=== PATIENT | male | born 1935 | race Caucasian/White ===

== ENCOUNTER 2018-02-11 17:35 | Inpatient (IN) | payer MEDICARE, OTHER ==
[~2018-02-11] VITALS: Ht 167.6 cm; Wt 66.5 kg
--- NOTE | ~2018-02-11 | HP ---
PATIENT: DANII JEROME MEDICAL RECORD: [id number] ACCOUNT: [id number] LOCATION:D.[id number] : 35 ADMISSION DATE: 02/12/18 HISTORY AND PHYSICAL EXAMINATION DIAGNOSES: 1. Syncope. 2. Abnormal ECG. 3. Dysrhythmia, premature ventricular contractions. 4. Chronic obstructive pulmonary disease. 5. Hyperlipidemia. 6. Gastroesophageal reflux disease. HISTORY OF PRESENT ILLNESS: Mr. Jerome presented yesterday to the Emergency Room after having an episode of syncope. He was relatively dehydrated after playing golf and doing yard work; however, he was in the garage, was disoriented for a time frame, then had дмитрий syncope witnessed by his . He has frequent PVCs on his EKG. His EKG is as well abnormal with a left bundle-branch block. He has not had a history of ischemic heart disease. He had a stress test in 2014 and that was overall normal. He has had syncope in the past, and he has frequent episodes of palpitations and flutter. PHYSICAL EXAMINATION: GENERAL APPEARANCE: Well-nourished, well-developed, appears stated age. Level of distress, comfortable. PSYCHIATRIC: Mental status, alert, normal affect. Orientation, oriented to time, place and person. EYES: Lids and conjunctiva, noninjected. No discharge, no pallor. ENT: Lips, teeth, gums, normal dentition. Oropharynx, no cyanosis, no pallor. NECK: Carotid arteries, bilateral normal upstroke, no bruits, no thrills. JUGULAR VEINS: No jugular venous pressure or distention. CERVICAL LYMPH NODES: Nontender, nonenlarged. THYROID: Not enlarged. Nontender. No nodules. LUNGS: Respiratory effort, unlabored. CHEST: Normal curvature. No thoracic deformity. No chest wall tenderness. Percussion, resonant. Auscultation, clear. No wheezes, no rales, no rhonchi. CARDIOVASCULAR: Precordial exam, nondisplaced. No heaves or pericardial thrills. Rate and rhythm, regular. Heart sounds, normal S1, normal S2. No S3, no gallop, no rub. Systolic murmur, not heard. Diastolic murmur, not heard. EXTREMITIES: No cyanosis, no edema. Peripheral pulses, full and equal in all extremities, except as noted. No bruits appreciated. ABDOMEN: Soft, nondistended. Normal aorta. No bruit. Nontender. No masses. Liver, nontender, no hepatomegaly. Spleen, nontender, no splenomegaly. MUSCULOSKELETAL: No joint tenderness. No joint swelling. No erythema. NEUROLOGICAL: Normal gait, normal strength, normal tone. SKIN: Warm and dry. OVERALL IMPRESSION: Syncope with abnormal ECG and dysrhythmia with PVCs. Most likely had a complex dysrhythmia causing the episode of syncope. We will observe on telemetry. With his abnormal ECG, this is very well ischemic based. We will plan for cardiac catheterization in the near future. TRANSINT:[id number] Voice Confirmation ID: [id number] DOCUMENT ID: [id number] HISTORY AND PHYSICAL [id number] DANII JEROME, NU SCHMITZ at 1207 CC: [id number] DICTATION DATE: 02/12/18 0939 GRADUATE TEACHING ASSISTANT: 02/12/18 1051 ADM IN [id number] [place] [address]
--- NOTE | ~2018-02-11 | DS ---
PATIENT:DANII PRESTON :35 MEDICAL RECORD: [id number] DISCHARGE SUMMARY ADMISSION DATE: 02/12/18 DISCHARGE DATE: 02/13/18 DISCHARGE DIAGNOSES: 1. Syncope. 2. Premature ventricular contractions. HOSPITAL COURSE: This is a gentleman who presents with syncope, ruled out for an HI. He was found to have frequent PVCs, but no complex dysrhythmias. He was started on Toprol 25 mg every day. He will follow up with [facility] in 2 weeks. TRANSINT:[id number] Voice Confirmation ID: [id number] DOCUMENT ID: [id number] NU CARD MD at 2002 CC: [id number] DICTATION DATE: 02/13/18 1550 SEED CORE OPERATOR: 02/13/18 1615 DIS IN 02/13/18 [facility] [address] [place] [address]
[2018-02-11 18:00] VITALS: BP 137/75
[2018-02-11 18:07] LABS: BASOPHILS 0.3 % (0-2); EOSINOPHILS 0.7 % (0-7); HEMATOCRIT 42.5 % (42.0-54.0); HEMOGLOBIN 14.4 g/dL (13.5-17.5); IMMATURE GRANULOCYTES 0.4 % (0-5); LYMPHOCYTES 10.5 % (15-50); MCH 31.4 pg (26.0-34.0); MCHC 33.9 g/dL (31.0-37.0); MCV 92.8 fL (80.0-100.0); MEAN PLATELET VOLUME 10.6 fL (7.4-10.4); MONOCYTES 11.8 % (2-11); NEUTROPHILS 76.3 % (40-80); PLATELET COUNT 157 10x3/uL (130-400); RBC 4.58 10x6/uL (4.20-6.10); RDW 13.5 % (11.5-14.5); WBC 7.6 10x3/uL (4.8-10.8)
[2018-02-11 18:15] VITALS: BP 104/80
[2018-02-11 18:27] LABS: ALBUMIN 3.3 g/dL (3.4-5.0); ALKALINE PHOSPHATASE 73 U/L (46-116); ALT (SGPT) 20 U/L (10-68); BILIRUBIN - TOTAL 1.18 mg/dL (0.2-1.3); CALC OSMOLALITY 277 mosm/kg (275-300); CALCIUM 8.5 mg/dL (8.5-10.1); CARBON DIOXIDE 27.3 mmol/L (21.0-32.0); CHLORIDE - SERUM 106 mmol/L (98-107); CREATININE - SERUM 1.1 mg/dL (0.6-1.3); GLUCOSE 95 mg/dL (74-106); POTASSIUM - SERUM 3.7 mmol/L (3.5-5.1); PROTEIN - SERUM 6.6 g/dL (6.4-8.2); SODIUM 140 mmol/L (136-145); UREA NITROGEN 10 mg/dL (7-18); eGFR NON AFRICAN AMERICAN 68 mL/min (90-120)
[2018-02-11 18:31] LABS: TROPONIN-I < 0.017 ng/mL (0.000-0.060)
[2018-02-11 19:15] VITALS: BP 139/62
[2018-02-11 19:24] LABS: APPEARANCE CLEAR (CLEAR); BILIRUBIN NEGATIVE (NEGATIVE); COLOR YELLOW (YELLOW); GLUCOSE NEGATIVE (NEGATIVE); KETONE NEGATIVE (NEGATIVE); NITRITE NEGATIVE (NEGATIVE); PROTEIN NEGATIVE (NEGATIVE); UROBILINOGEN NORMAL (NORMAL)
[2018-02-11] MEDS ORDERED: LIPITOR20 MG PO (19:39)
[2018-02-11] MEDS ORDERED: XANAX0.5 MG PO (19:40)
[2018-02-11] MEDS ORDERED: FLUTICASONE PRO16 GM NASAL (19:40)
[2018-02-11] MEDS ORDERED: PROAIR HFA8.5 GM INH (19:41)
[2018-02-11] MEDS ORDERED: HYDROCODON-ACE1 EAC7 PO (19:41)
[2018-02-11] MEDS ORDERED: NEXIUM20 MG PO (19:41)
[2018-02-11] MEDS ORDERED: FEXOFENADINE H180 MG PO (19:42)
[2018-02-11 20:00] VITALS: BP 137/75
[2018-02-11 21:00] VITALS: BP 133/64
[2018-02-11 22:00] VITALS: BP 117/60
[2018-02-11 22:37] LABS: CKMB 3.5 U/L (0.0-3.6); CREATINE KINASE 188 UL (21-232)
[2018-02-11 22:38] LABS: TROPONIN-I < 0.017 ng/mL (0.000-0.060)
[2018-02-12 01:04] VITALS: BP 140/69; BMI 23.7
[2018-02-12 03:11] VITALS: BP 142/62
[2018-02-12 04:30] LABS: BASOPHILS 0.4 % (0-2); EOSINOPHILS 0.9 % (0-7); HEMATOCRIT 41.7 % (42.0-54.0); IMMATURE GRANULOCYTES 0.1 % (0-5); MCHC 33.6 g/dL (31.0-37.0); MCV 92.3 fL (80.0-100.0); MEAN PLATELET VOLUME 10.9 fL (7.4-10.4); MONOCYTES 13.9 % (2-11); NEUTROPHILS 63.7 % (40-80); PLATELET COUNT 176 10x3/uL (130-400); RBC 4.52 10x6/uL (4.20-6.10); RDW 13.6 % (11.5-14.5); WBC 7.1 10x3/uL (4.8-10.8)
[2018-02-12 05:00] LABS: ALBUMIN 2.8 g/dL (3.4-5.0); ALKALINE PHOSPHATASE 65 U/L (46-116); ALT (SGPT) 15 U/L (10-68); BILIRUBIN - TOTAL 1.18 mg/dL (0.2-1.3); CALC OSMOLALITY 281 mosm/kg (275-300); CARBON DIOXIDE 28.3 mmol/L (21.0-32.0); CHLORIDE - SERUM 109 mmol/L (98-107); CKMB 4.4 U/L (0.0-3.6); CREATINE KINASE 228 UL (21-232); CREATININE - SERUM 0.9 mg/dL (0.6-1.3); GLUCOSE 105 mg/dL (74-106); POTASSIUM - SERUM 3.7 mmol/L (3.5-5.1); PROTEIN - SERUM 5.9 g/dL (6.4-8.2); SODIUM 142 mmol/L (136-145); UREA NITROGEN 9 mg/dL (7-18); eGFR NON AFRICAN AMERICAN 86 mL/min (90-120)
[2018-02-12 05:14] LABS: TROPONIN-I < 0.017 ng/mL (0.000-0.060)
[2018-02-12 07:59] VITALS: BP 128/61
[2018-02-12 10:07] VITALS: Ht 167.6 cm; Wt 66.5 kg
[2018-02-12 10:23] LABS: CKMB 3.1 U/L (0.0-3.6); CREATINE KINASE 214 UL (21-232); TROPONIN-I < 0.017 ng/mL (0.000-0.060)
[2018-02-12 12:22] VITALS: BP 121/57
[2018-02-12 16:23] VITALS: BP 122/47
[2018-02-12 20:49] VITALS: BP 104/60
[2018-02-13 00:07] VITALS: BP 136/58
[2018-02-13 04:39] VITALS: BP 136/58
[2018-02-13 08:07] VITALS: BP 146/78
[2018-02-13 12:29] VITALS: BP 139/57
[2018-02-13 15:47] VITALS: BP 119/64
[2018-02-13] MEDS ORDERED: TOPROL XL25 MG PO (15:50)
== END 2018-02-13 16:15 | disposition home or self-care (01) | DRG 312 ==
LOC: D.ER 17:35 → D.EDHOLD 21:40 → OBSVTIME 21:40 → D.M2 22:11 → D.MS 23:28
PROVIDERS: Family Medicine
PROC: 0HQ0XZZ Repair Scalp Skin, External Approach (ICD-10-PCS; principal; 2018-02-11)
DX: R55 Syncope and collapse (principal); I49.3 Ventricular premature depolarization; S01.01XA Laceration without foreign body of scalp, initial encounter; W18.30XA Fall on same level, unspecified, initial encounter; Y92.015 Private garage of single-family (private) house as the place of occurrence of the external cause; J44.9 Chronic obstructive pulmonary disease, unspecified; E78.5 Hyperlipidemia, unspecified; K21.9 Gastro-esophageal reflux disease without esophagitis; E86.0 Dehydration; I44.7 Left bundle-branch block, unspecified; R94.31 Abnormal electrocardiogram [ECG] [EKG]

== ENCOUNTER 2018-11-18 10:42 | Observation (INO) | payer MEDICARE, OTHER ==
[~2018-11-18] VITALS: Ht 167.6 cm; Wt 68.0 kg
--- NOTE | ~2018-11-18 | HEMODYNAMI ---
PATIENT:DANII PRESTON MEDICAL RECORD: [id number] : 35 LOCATION:[facility] [address] ADMISSION DATE: 11/18/18 Generatedon:11/20/201816:43 Patient name: DANII PRESTON Patient #: [id number] SSN: : 1 10/02/1934 Date of study: 11/20/2018 Page: Of Hemodynamic Procedure Report Patient Data Patient Demographics Procedure consent was obtained First Name: DANII Gender: Male Last Name: KARY : 1935 Patient #: [id number] Age: 83 year(s) Race: Unknown Additional ID: [id number] Contact details [address]: [address] [place] [address] State: [place] City: [place] Zip code: [address] Past Medical History Allergies Allergen Reaction Date Comments Reported Other allergy 11/20/2018 IODINATED CONTRAST- ORAL AND IV DYE, ASA Admission Admission Data Admission Date: 11/18/2018 Admission Time: 12:27 Room #: 2129 Height (in.): 65.75 BSA: 1.79 (m2) Height (cm.): 167 BMI: 25.1 (kg/m2) Weight (lbs.): 154.32 Weight (kg.): 70 Lab Results Lab Result Date: 11/20/2018 Lab Result Time: 0:00 Biochemistry Name Units Result Min Max BUN mg/dl 15 --(--*-)-- 7 18 Creatinine mg/dl 0.8 --(-*--)-- 0.6 1.3 CBC Name Units Result Min Max Hematocrit % 41.1 -*(----)-- 42 54 Hemoglobin g/dl 14.1 --(*---)-- 13.5 17.5 Procedure Procedure Types Cath Procedure Diagnostic Procedure [facility] w/Coronaries Sedation Charges Moderate Sedation up to 30 minutes PCI Procedure Coronary Stent Coronary Stent Initial Procedure Description Procedure Date Procedure Date: 11/20/2018 Procedure Start Time: 16:14 Procedure End Time: 16:40 Procedure Staff Name Function Serge Martini MD Performing Physician Sobia Paul RT Monitor Christina Calrk RN Nurse Tammy Evangelista RT Monitor Minerva Cruz RT Scrub Procedure Data Cath Procedure Fluoroscopy Diagnostic fluoroscopy Total fluoroscopy Time: 6.5 time: 6.5 min min Diagnostic fluoroscopy Total fluoroscopy dose: 785 dose: 785 mGy mGy Contrast Material Contrast Material Type Amount (ml) Isovue 300 122 Entry Location Entry Primary Successful Side Size Upsize Upsize Entry Closure [place] ccessful Closure Location (Fr) 1 (Fr) 2 (Fr) Remarks Device Remarks Radial Right 6 Fr Manual tr artery Short Compression Estimated blood loss: 10 ml Diagnostic catheters Device Type Used For End Catheter Placement DIAGNOSTIC [place] 110cm 5 Procedure Fr catheter ([id number]) Procedure Complications No complications Procedure Medications Medication Administration Route Dosage 0.9% NaCl I.V. 100 ml/hr Oxygen etCO2 Nasal cannula 2 l/min Lidocaine 2% added to field 20 Heparin Flush Bag added to field 2 bags (1000units/500ml NS) Radial Cocktail added to field 1 syringe (Verapomil 2mg/Nitro 400mcg/Heparin 1500units) Versed I.V. 2 mg Fentanyl I.V. 50 mcg Fentanyl I.V. 50 mcg Heparin Bolus I.V. 4000 units Integrilin (Bolus I.V. 6.2 ml 2mg/ml) Nitroglycerin IC/IA I.C. 200 mcg Plavix P.O. 600 mg Hemodynamics Rest BSA: 1.79 (m2) O2 Consumption: Estimated: 217.02 (ml/min) O2 Consumption indexed : Estimated:121.24 (ml/min/m) Heart Rate: 90 (bpm) Pressure Samples Time Site Value (mmHg) Purpose Heart Use Rate(bpm) 16:16 LV 118/9,9 Snapshot 87 16:16 AO 96/54(78) Pullback 84 16:16 LV 75/33,-16 Pullback 84 Gradients Valve Time Site 1 Site 2 Mean SEP/DFP Peak To Heart Use (mmHg) (sec/min) Peak Rate (mmHg) (bpm) Aortic 16:16 LV AO 0 84 75/33,-16 96/54(78) Calculations Valve P-P Mean Valve Index Valve Source Name Gradient Area Flow (cm2) Aortic 0 0 Snapshots Pre Cath Intra NCS Post Cath Vital Signs Time Heart Resp SPO2 etCO2 NIBP (mmHg) Rhythm Pain Sedation Rate (ipm) (%) (mmHg) Status Level (bpm) 16:03:02 84 12 97 14.9 158/89(135) NSR 0 (11) 10(A) , No pain 16:08:05 88 18 100 29.2 147/86(118) NSR 0 (11) 10(A) , No pain 16:12:25 77 13 99 26.2 133/76(118) NSR 0 (11) 9(A) , No pain 16:16:43 85 14 98 26.2 115/63(86) NSR 0 (11) 9(A) , No pain 16:20:55 78 10 94 11.9 116/63(88) NSR 0 (11) 9(A) , No pain 16:25:11 89 11 97 26.2 124/49(97) NSR 0 (11) 9(A) , No pain 16:30:10 83 15 98 26.2 122/66(96) NSR 0 (11) 9(A) , No pain 16:34:24 80 13 95 28.4 116/63(87) NSR 0 (11) 10(A) , No pain 16:38:32 91 18 97 29.2 125/64(107) NSR 0 (11) 10(A) , No pain Medications Time Medication Route Dose Verified Delivered Reason Not es Effectiveness by by 16:02:04 0.9% NaCl I.V. 100 Serge Vasquez used for ml/hr Lianet Eduardo procedure MD AWAD 16:02:14 Oxygen etCO2 2 l/min Serge Vasquez used for Nasal Lianet Eduardo procedure cannula MD AWAD 16:02:20 Lidocaine 2% added 20ml Serge Valentine [facility] 16:02:24 Heparin Flush added 2 bags Serge Valentine [facility] for [facility] (1000units/500ml field MD SCHMITZ NS) 16:02:29 Radial Cocktail added 1 Serge Valentine used for (Verapomil to syringe Lianet Lianet procedure 2mg/Nitro field MD SCHMITZ 400mcg/Heparin 1500units) 16:09:15 Versed I.V. 2 mg Serge Kca for sedation [facility] Ferdinand Clark MD, RN 16:09:26 Fentanyl I.V. 50 mcg Serge Vasquez for sedation [facility] Ferdinand Clark MD, RN 16:14:34 Fentanyl I.V. 50 mcg Serge Vasquez for sedation [facility] Ferdinand Clark MD, RN 16:20:24 Heparin Bolus I.V. 4000 Serge Vasquez for kelsy ified units [place] Eduardo anticoagulation with dr MD AWAD kyung 16:22:30 Integrilin I.V. 6.2 ml Serge Vasquez for was ganga (Bolus 2mg/ml) [place] Eduardo anticoagulation 3.8 ml MD AWAD of vial 16:30:38 Nitroglycerin I.C. 200 mcg Serge Valentine for IC/IA [place] [facility] Ferdinand segura MD, MD 16:40:38 Plavix P.O. 600 mg Serge Vasquez for LianetFerdinand Clark antiplatelet RN therapy Procedure Log Time Note 15:32:35 Christina Clark RN sent for patient. Start room use. 15:32:36 Signed procedure consent form obtained from patient. 15:32:38 Time tracking: Regular hours (M-F 7:00 - 5:00) 15:32:42 Plan of Care:Hemodynamics will remain stable., Cardiac rhythm will remain stable., Comfort level will be maintained., Respiratory function will remain adequate., Patient/ family verbilizes understanding of procedure., Procedure tolerated without complication., Recovers from procedure without complications.. 15:38:55 Patient allergic to Other allergyIODINATED CONTRAST- ORAL AND IV DYE, ASA 15:39:21 Lab Result : BUN 15 mg/dl 15:39:21 Lab Result : Hemoglobin 14.1 g/dl 15:39:21 Lab Result : Creatinine 0.8 mg/dl 15:39:21 Lab Result : Hematocrit 41.1 % 15:58:14 Patient received from Med II to CCL 1 Alert and oriented. Tansferred to table in Supine position. 15:58:15 Warm blankets applied, and ash hugger turned on for patient comfort. 15:58:15 Correct patient and procedure confirmed by team. 15:58:16 ECG and BP/O2 sat monitors applied to patient. 16:01:54 Vital chart was started 16:02:04 0.9% NaCl 100 ml/hr I.V. was administered by Christina Clark RN; used for procedure; 16:02:14 Oxygen 2 l/min etCO2 Nasal cannula was administered by Christina Clark RN; used for procedure; 16:02:20 Lidocaine 2% 20ml vial added to field was administered by Serge Martini MD; for local anesthetic; 16:02:24 Heparin Flush Bag (1000units/500ml NS) 2 bags added to field was administered by Serge Martnii MD; used for procedure; 16:02:26 Full Disclosure recording started 16:02:29 Radial Cocktail (Verapomil 2mg/Nitro 400mcg/Heparin 1500units) 1 syringe added to field was administered by Serge Martini MD; used for procedure; 16:02:30 Rhythm: sinus rhythm 16:02:38 H&P Date Dictated: 11/18/2018 Within 30 days and on chart., H&P Addendum completed by physician on day of procedure. (MUST COMPLETE FOR ALL OUTPATIENTS). 16:02:40 Pre-procedure instructions explained to patient. 16:02:40 Pre-op teaching completed and patient verbalized understanding. 16:02:43 Family in patients room. 16:02:45 Patient NPO since Midnight. 16:02:49 Is the patient allergic to Iodine/contrast media? Yes. 16:02:50 Was the patient premedicated? Yes 16:03:44 Is patient on blood thinner?No 16:03:46 Patient diabetic? No. 16:03:48 Previous problem with sedation/anesthesia? No ? 16:03:50 Snore? No 16:03:51 Sleep apnea? No 16:03:52 Deviated septum? No 16:03:53 Opens mouth fully? Yes 16:03:53 Sticks out tongue? Yes 16:03:56 Airway obstruction? No ? 16:04:00 Dentures? No ? 16:04:05 Pre procedure: right dorsailis pedis pulse 2+ Normal; easily identifiable; not easily obliterated 16:04:10 Modified Claude's test Ulnar < 7 seconds 16:04:12 Patient pain scale 0/10 ?. 16:04:25 IV patent on arrival in left forearm with 0.9% NaCl at [facility]. 16:04:27 Lab results completed and on chart. 16:04:34 Right Radial & Right Groin area was prepped with chlora-prep and draped in sterile fashion 16:04:35 Alarms reviewed by RValencia N. 16:04:36 Sharps counted by scrub and verified by R.N. 16:04:39 Use device set Radial Dx or PCI 16:04:40 ACIST Syringe (16541) opened to sterile field. 16:04:40 Medline Cath Pack ([id number]) opened to sterile field. 16:04:41 Bag Decanter (2002S) opened to sterile field. 16:04:41 DIAGNOSTIC WIRE .035 260cm J wire (860307) opened to sterile field. 16:04:42 ACIST Hand Control (56819) opened to sterile field. 16:04:42 ACIST Manifold (63261) opened to sterile field. 16:04:44 MBrace Wrist Support ([id number]) opened to sterile field. 16:04:44 SHEATH 6FR Slender (70-6467) opened to sterile field. 16:08:38 Physician arrived 16:08:39 --------ALL STOP TIME OUT------ 16:08:40 Final Timeout: patient, procedure, and site verified with staff and physician. All members of the team are in agreement. 16:08:42 Right Radial & Right Groin site verified by team. 16:08:53 Maximum allowable Isovue 300 dose 300ml. Physician notified. (300ml for normal creatinines. For patients with creatinine of 1.7 or higher multiply weight(kg) x 5 divided by creatinine.) 16:08:59 Fire Safety Assessment: A--An alcohol-based skin anteseptic being used preoperatively., C--Open oxygen or nitrous oxide is being used., D--An ESU, laser, or fiber-optic light is being used. 16:09:04 Physical assessment completed. ASA score P 2 - A patient with mild systemic disease as per Serge Martini MD. 16:09:07 Physical assessment completed. ASA score P 2 - A patient with mild systemic disease as per Serge Martini MD. 16:09:10 Sedation plan: IV Moderate Sedation Medication:Versed, Fentanyl 16:09:15 Versed 2 mg I.V. was administered by Christina Clark RN; for sedation; 16:09:26 Fentanyl 50 mcg I.V. was administered by Christina Clark RN; for sedation; 16:10:10 Patient Height : 65.75 inches 16:10:16 Patient Weight : 154.32 lbs 16:13:19 Procedure started. 16:14:22 Baseline sample Acquired. 16:14:34 Fentanyl 50 mcg I.V. was administered by Christina Clark RN; for sedation; 16:14:58 Local anesthetic to right radial artery with Lidocaine 2% by Serge Martini MD.INITIAL ACCESS ONLY 16:15:10 A 6 Fr Short sheath was inserted into the Right Radial artery 16:15:42 A DIAGNOSTIC [place] 110cm 5 Fr catheter ([id number]) was advanced over the wire and used for Procedure. 16:16:07 LV angiography performed. 16:16:44 EF : 55 % 16:16:46 LCA angiography performed. 16:18:04 RCA angiography performed. 16:18:20 Catheter removed. 16:19:03 WHISPER 300cm guide wire ([id number]) opened to sterile field. 16:19:04 INFLATOR Merit BasixCompak (AS8448) opened to sterile field. 16:19:05 GUIDE 6FR XBLAD 3.5 catheter ([id number]) opened to sterile field. 16:19:09 Proceeding to intervention. 16:19:19 6 Fr xblad3.5 guide catheter was inserted over the wire 16:20:15 WHISPER wire advanced. 16:20:24 Heparin Bolus 4000 units I.V. was administered by Christina Clark RN; for anticoagulation; verified with dr tracey 16:22:30 Integrilin (Bolus 2mg/ml) 6.2 ml I.V. was administered by Christina Clark RN; for anticoagulation; wasted 3.8 ml of vial 16:25:18 Place stent Inflation Number: 1 A SAHARA OTW 3.0 x 12 stent ([id number]) was prepped and advanced across the Dist LAD. The stent was deployed at 14 ELISABET for 0:19 (min:sec). 16::42 Stent catheter was removed intact over wire. 16:28:24 Place stent Inflation Number: 1 A SAHARA RX 3.0 x 12 stent ([id number]) was prepped and advanced across the Prox LAD. The stent was deployed at 14 ELISABET for 0:17 (min:sec). 16:28:30 Stent catheter was removed intact over wire. 16:30:38 Nitroglycerin IC/IA 200 mcg I.C. was administered by Serge Martini MD; for vasodilation; 16:36:12 Inflate balloon Inflation number: 1 A EMERGE OTW 3.0 x 15 balloon ([id number]) was prepped and advanced across the Mid LAD, then inflated to 6 ELISABET for 0:16 (min:sec). 16:36:16 TR BAND Standard ([id number]) opened to sterile field. 16:36:53 Wire removed. 16:36:54 Guide catheter removed. 16:37:07 Sheath removed intact; hemostasis achieved with Manual Compression to the Right Radial artery. 16:37:10 Procedure ended.(Physican Out) 16:37:37 Fluoroscopy time 06.50 minutes. 16:37:46 Fluoroscopy dose: 785 mGy 16:37:46 Flurop Dose total: 785 16:37:57 Contrast amount:Isovue 300 122ml. 16:38:11 TR band inflated with 12cc of air. 16:38:13 Insertion/operative site no bleeding no hematoma. 16:38:15 Post Procedure Pulses reassessed and unchanged 16:38:19 Post-procedure physical assessment completed. ASA score P 2 - A patient with mild systemic disease as per Serge Martini MD. 16:38:49 Post procedure rhythm: sinus rhythm 16:38:58 Estimated blood loss: 10 ml 16:39:01 Post procedure instruction explained to patient.Patient verbalizes understanding. 16:39:23 Procedure type changed to Cath procedure, Diagnostic procedure, LHC, LHC w/Coronaries, Sedation Charges, Moderate Sedation up to 30 minutes, PCI procedure, Coronary Stent, Coronary Stent Initial 16:39:25 Procedure and supply charges have been captured, reviewed, submitted and are correct. 16:39:52 Procedure Complication : No complications 16:39:55 Vital chart was stopped 16:40:04 Report given to Pre/Post Procedure Room. 16:40:12 Patient transfered to [facility] with Bed. 16:40:15 Procedure ended. 16:40:15 Full Disclosure recording stopped 16:40:19 End room use (Document Last) 16:40:29 ACC-PCI Only Patient was given prescriptions, or instructed by Serge Martini MD to start/continue the following medications upon discharge: Plavix 16:40:38 Plavix 600 mg P.O. was administered by Christina Clark RN; for antiplatelet therapy; Intervention Summary Intervention Notes Time ActionType Lesion and Equipment Used Action# Pressure Duration Attributes 16:25:18 Place stent Dist LAD SAHARA OTW 3.0 x 1 14 00:19 12 stent ([id number]) 16:28:24 Place stent Prox LAD SAHARA RX 3.0 x 1 14 00:17 12 stent ([id number]) 16:36:12 Inflate Mid LAD EMERGE OTW 3.0 1 6 00:16 balloon x 15 balloon ([id number]) Device Usage Item Name Manufacture Quantity Catalog Number Hospital Part Current Minimal Lot# / Charge Number Stock Stock Serial# Code ACIST Syringe Acist 1 74236 692537 113602 770237 20 (95342) Medical Systems Inc Medline Cath Medline 1 [id number] 175171 68482 257215 5 Pack ([id number]) Bag Decanter Microtek 1 2001S 192824 88740 366116 5 () Medical Inc. DIAGNOSTIC St [place] 1 648843 814871 012919 150365 30 WIRE .035 260cm J wire (686109) ACIST Hand Acist 1 61285 399384 807315 873299 5 Control Medical (21359) Systems Inc ACIST Manifold Acist 1 87728 197284 686994 667922 5 (68981) Medical Systems Inc MBrace Wrist Advanced 1 140-0250-00 962929 77552 481710 5 Support Vascular ([id number]) Dynamics SHEATH 6FR Terumo 1 [id number] 096032 170411 569839 5 Slender (80-1060) DIAGNOSTIC Terumo 1 40-5013 642323 347488 045074 5 [place] 110cm 5 Fr catheter (561381) WHISPER 300cm Yu 1 [id number] 610594 229915 339578 5 guide wire Vascular (6917639US) INFLATOR Merit Merit 1 [id number] 803535 877938 206992 15 TVS Logistics ServicesidRubicon Media [facility] ([id number]) GUIDE 6FR Cardinal 1 [id number] 646081 972537 400379 10 XBLAD 3.5 Health catheter (09482194) SAHARA OTW 3.0 x Medtronic 1 [id number] 282240 7042797 966319 5 [id number] 12 stent ([id number]) SAHARA RX 3.0 x Medtronic 1 [id number] 898292 9657000 682836 5 [id number] 12 stent ([id number]) EMERGE OTW 3.0 [place] 1 [id number] 662869 013874 832485 5 [id number] x 15 balloon Scientific ([id number]) TR BAND Terumo 1 [id number] 816460 424908 191342 40 Standard ([id number]) Signature Audit [place] Stage Time Signature Unsigned Intra-Procedure 11/20/2018 Tammy Evangelista 4:43:18 PM RT(R) Signatures Monitor : Sobia Signature : Counts RT Date : Time : Monitor : Tammy Evangelista Signature : RT Date : Time : [place] [id number] [place] [address]
[~2018-11-18 10:42] MED LIST: FEXOFENADINE H180 MG PO; FLUTICASONE PRO16 GM NASAL; HYDROCODON-ACE1 EAC7 PO; LIPITOR20 MG PO; NEXIUM20 MG PO; PROAIR HFA8.5 GM INH; TOPROL XL25 MG PO; XANAX0.5 MG PO
[2018-11-18 11:29] LABS: BASOPHILS 0.6 % (0-2); EOSINOPHILS 0.3 % (0-7); HEMOGLOBIN 14.8 g/dL (13.5-17.5); IMMATURE GRANULOCYTES 0.2 % (0-5); LYMPHOCYTES 16.6 % (15-50); MCH 31.3 pg (26.0-34.0); MCHC 34.4 g/dL (31.0-37.0); MCV 90.9 fL (80.0-100.0); MEAN PLATELET VOLUME 10.2 fL (7.4-10.4); MONOCYTES 8.4 % (2-11); NEUTROPHILS 73.9 % (40-80); PLATELET COUNT 149 10x3/uL (130-400); RBC 4.73 10x6/uL (4.20-6.10); RDW 13.4 % (11.5-14.5); WBC 6.2 10x3/uL (4.8-10.8)
[2018-11-18 11:44] LABS: APTT 26.8 SECONDS (22.8-39.4); INR 1.1 (0.85-1.17); PROTIME 13.7 SECONDS (11.6-15.0)
[2018-11-18 11:55] LABS: ALBUMIN 3.2 g/dL (3.4-5.0); ALKALINE PHOSPHATASE 61 U/L (46-116); ALT (SGPT) 22 U/L (10-68); CALC OSMOLALITY 285 mosm/kg (275-300); CALCIUM 7.8 mg/dL (8.5-10.1); CARBON DIOXIDE 24.8 mmol/L (21.0-32.0); CHLORIDE - SERUM 109 mmol/L (98-107); GLUCOSE 111 mg/dL (74-106); POTASSIUM - SERUM 4.6 mmol/L (3.5-5.1); PROTEIN - SERUM 6.6 g/dL (6.4-8.2); SODIUM 142 mmol/L (136-145); UREA NITROGEN 18 mg/dL (7-18); eGFR NON AFRICAN AMERICAN 76 mL/min (90-120)
[2018-11-18 12:12] LABS: CKMB 1.6 U/L (0.0-3.6); CREATINE KINASE 61 UL (21-232); MAGNESIUM - SERUM 2.5 mg/dL (1.8-2.4); TROPONIN-I < 0.017 ng/mL (0.000-0.060)
--- NOTE | 2018-11-18 13:08 | NUR ---
RADHA FROM THE ER TO CALL TO GIVE REPORT. ROOM DIRTY. WILL CALL WHEN DONE.
--- NOTE | 2018-11-18 13:10 | NUR ---
CALLED TO GIVE REPORT ON PT, ROOM IS DIRTY. RN STATES SHE WILL CALL BACK ONCE ROOM IS CLEAN.
--- NOTE | 2018-11-18 14:09 | NUR ---
ATTEMPTED TO CALL REPORT FOR SECOND TIME, ROOM 2129 HAS NOT BEEN CLEANED YET. UNABLE TO GIVE REPORT AT THIS TIME.
[2018-11-18 14:25] VITALS: BP 127/59
--- NOTE | 2018-11-18 14:58 | NUR ---
THIRD ATTEMPT ON REPORT FOR 2128, ROOM IS STILL NOT CLEAN. NURSE STATES EVS JUST STARTED CLEANING IT.
--- NOTE | 2018-11-18 15:07 | NUR ---
I CALLED RADHA IN THE ER TO GET REPORT. RJ MAT ALARM PLACED ON BED BED ALARM DOES NOT WORK.
--- NOTE | 2018-11-18 15:12 | NUR ---
DR VALENZUELA ON CONSULT AND SHE STATES THAT HE HAS NOT BEEN CONTACTED. ALSO, NS FLUIDS HAS NOT BEEN STARTED.
[2018-11-18 15:58] VITALS: BP 135/66
--- NOTE | 2018-11-18 16:03 | NUR ---
1550-RECEIVED VIA STRETCHER TO ROOM, WILL ADMIT.
[2018-11-18 16:06] VITALS: BP 135/66; BMI 25.0
--- NOTE | 2018-11-18 16:27 | NUR ---
DR VALENZUELA AND DR VALENZUELA HERE TO SEE PATIENT.
--- NOTE | 2018-11-18 16:56 | NUR ---
ASSSITED PATIENT TO RESTROOM TO VOID AND HAVE ANOTHER BM.
--- NOTE | 2018-11-18 19:22 | NUR ---
INTRODUCED SELF TO PATIENT, PATIENT AT BEDSIDE REQUSTING PILLOW AND BLANKET FOR SLEEP LATER TONIGHT. ADVISED I WOULD GET HER BOTH. RESP EVEN AND UNLABORED.
[2018-11-18 19:50] LABS: CKMB 1.3 U/L (0.0-3.6); CREATINE KINASE 53 UL (21-232); TROPONIN-I < 0.017 ng/mL (0.000-0.060)
[2018-11-18 20:00] VITALS: BP 159/60
[2018-11-18 23:17] LABS: CKMB 1.2 U/L (0.0-3.6); CREATINE KINASE 55 UL (21-232); TROPONIN-I < 0.017 ng/mL (0.000-0.060)
[2018-11-19 00:30] VITALS: BP 137/67
--- NOTE | 2018-11-19 02:29 | NUR ---
PATIENT RESTING QUIETLY WITH EYES CLOSED, AT BEDSIDE ALSO RESTING WITH EYES CLOSED. ELMO SUN OF ALLA.
[2018-11-19 04:53] LABS: BASOPHILS 0.5 % (0-2); EOSINOPHILS 2.2 % (0-7); HEMATOCRIT 39.1 % (42.0-54.0); HEMOGLOBIN 13.4 g/dL (13.5-17.5); IMMATURE GRANULOCYTES 0.2 % (0-5); LYMPHOCYTES 34.2 % (15-50); MCH 30.8 pg (26.0-34.0); MCHC 34.3 g/dL (31.0-37.0); MCV 89.9 fL (80.0-100.0); MEAN PLATELET VOLUME 9.9 fL (7.4-10.4); MONOCYTES 13.7 % (2-11); NEUTROPHILS 49.2 % (40-80); PLATELET COUNT 141 10x3/uL (130-400); RBC 4.35 10x6/uL (4.20-6.10); RDW 13.3 % (11.5-14.5); WBC 5.5 10x3/uL (4.8-10.8)
[2018-11-19 05:35] LABS: ALBUMIN 2.7 g/dL (3.4-5.0); ALKALINE PHOSPHATASE 51 U/L (46-116); ALT (SGPT) 18 U/L (10-68); BILIRUBIN - TOTAL 1.21 mg/dL (0.2-1.3); CALC OSMOLALITY 285 mosm/kg (275-300); CALCIUM 7.3 mg/dL (8.5-10.1); CARBON DIOXIDE 22.3 mmol/L (21.0-32.0); CHLORIDE - SERUM 112 mmol/L (98-107); CKMB 1.2 U/L (0.0-3.6); CREATINE KINASE 47 UL (21-232); CREATININE - SERUM 0.9 mg/dL (0.6-1.3); GLUCOSE 97 mg/dL (74-106); MAGNESIUM - SERUM 2.2 mg/dL (1.8-2.4); PROTEIN - SERUM 5.6 g/dL (6.4-8.2); SODIUM 143 mmol/L (136-145); UREA NITROGEN 15 mg/dL (7-18); eGFR NON AFRICAN AMERICAN 85 mL/min (90-120)
[2018-11-19 05:37] LABS: POTASSIUM - SERUM 3.9 mmol/L (3.5-5.1); TROPONIN-I < 0.017 ng/mL (0.000-0.060)
[2018-11-19 08:30] VITALS: BP 140/70
[2018-11-19 11:46] VITALS: BP 133/62
--- NOTE | 2018-11-19 11:47 | NUR ---
I have reviewed this patient and I concur with the Shift Assessment completed by the Licensed Practical Nurse today this shift.
[2018-11-19 14:29] VITALS: Ht 167.6 cm; Wt 68.0 kg
--- NOTE | 2018-11-19 14:51 | CN ---
PATIENT NAME:DANII PRESTON MEDICAL RECORD: [id number] : 35 LOCATION:[facility] D.2129 ADMIT DATE: 11/18/18 ACCOUNT: [id number] CONSULTING PHYSICIAN: LEANNA VALENZUELA MD REFERRING PHYSICIAN: KATE VALENZUELA MD DATE OF CONSULTATION: 11/18/2018 HISTORY: An 83-year-old gentleman with known history of coronary artery disease and has history of cardiac dysrhythmia as well, admitted with near syncopal episode, this happened when he had to use the restroom, with marked diaphoresis and lightheadedness that have resolved spontaneously. We are asked to see him concerning his cardiovascular status. PAST MEDICAL HISTORY: Includes; 1. History of hypertension. 2. Cardiac arrhythmia and PVCs. 3. Abnormal ECG with left bundle-branch block. ALLERGIES: CONTRAST. MEDICATIONS: Typically, include Amanda 180 daily, atorvastatin 40 daily, metoprolol 25 daily, Xanax 0.5 t.i.d., Bazine 5/325 daily. SOCIAL HISTORY: . He is nonsmoker and nondrinker. He takes care of all his ADLs. He stays quite active. REVIEW OF SYSTEMS: The patient reports easy bruising but reports no swollen glands. The patient reports no fever, no night sweats, no significant weight gain, no significant weight loss. No significant exercise tolerance. The patient reports no dry eyes, no irritation, no vision change. Patient reports no difficulty hearing and no ear pain. Patient reports no frequent nose bleeds or nose and sinus problems. Patient reports on arm pain on exertion. No shortness of breath while lying down. No history of heart murmur. Patient reports no cough, no wheezing or coughing up blood. Patient reports no abdominal pain, no vomiting. Normal appetite. No diarrhea and not vomiting blood. No nausea and no constipation. Patient reports no incontinence. No difficulty urinating. No hematuria. No increased frequency. Patient reports no muscle aches. No weakness, no arthralgias, no back pain. No swelling of the extremities. Patient reports no abnormal mole, no jaundice, no rashes. Reports no loss of consciousness. No weakness and no numbness. No seizures, dizziness, or headaches. The patient reports no depression, no sleep disturbance, feeling safe in a relationship and no alcohol abuse. Patient reports on fatigue. Reports no runny nose or sinus pressure. No itching, no hives, and no frequent sneezing. PHYSICAL EXAMINATION: GENERAL: Pleasant gentleman, in no acute distress, appears younger than stated age. VITAL SIGNS: Blood pressure 135/66. Pulse 70 and regular with occasional ectopic beats. NECK: No JVD or bruit. HEART: Regular. LUNGS: Good air excursion. ABDOMEN: Soft and nontender. EXTREMITIES: Pulses 2+ with no edema. CONSULT REPORT [id number] DANII PRESTON DIAGNOSTIC DATA: ECG shows left bundle PVCs. IMPRESSION: Near syncope, questionable syncopal micturition or vasovagal reflex. Agree with current workup. Hydration. We will check echo. Thank you for consultation. TRANSINT:[id number] Voice Confirmation ID: [id number] DOCUMENT ID: [id number] LEANNA VALENZUELA MD at 1451 CC: [id number] DICTATION DATE: 11/18/18 1706 VASCULAR SURGEON: 11/18/182026 ADM IN [place] [id number] [place] [id number]
--- NOTE | 2018-11-19 14:51 | EC ---
PATIENT:DANII PRESTON DATE OF SERVICE: 11/18/18 SEX: M MEDICAL RECORD: [id number] DATE OF : 35 LOCATION:D.M2 D.212 AGE OF PATIENT: 83 ADMISSION DATE: 11/18/18 REFERRING PHYSICIAN: INTERPRETING PHYSICIAN: LEANNA VALENZUELA MD ECHOCARDIOGRAM REPORT ECHO CHARGES 4 ECHO COMPLETE Date: 11/19/18 CLINICAL DIAGNOSIS: SYNCOPE ECHOCARDIOGRAPHIC MEASUREMENTS (adult normal given) AC root (d.<3.7cm) 2.2 cm LV Septum d (<1.2 cm> 1.2 cm Valve Excursion 1.2 cm LV Septum (systole) 1.6 cm Left Atria (s.<4.0cm> 3.1 cm LVPW d(<1.2cm) 0.9 cm RV (d.<2.3cm) 2.3 cm LVPW (sytole) 1.3 cm LV diastole(<5.6CM) 4.5 cm MV E-F(>70mm/sec) cm LV systole 3.7 cm LVOT Diameter 1.6 cm MV exc.(>10mm) cm Est.ejection fraction (50-75%) % DOPPLER: LVIT cm/sec A 71 cm/sec E 46 cm/sec LA cm/sec RVSP 26.1 mmHg LVOT 68 cm/sec AOP1/2T m/s Asc. Ao 105 cm/sec RVOT 76 cm/sec RA cm/sec PA 99 cm/sec AV Gradient Peak 4.4 mmHg AV Mean 2.9 mmHg AV Area 0.9 cm MV Gradient Peak 3.2 mmHg MV Mean 1.6 mmHg MV Area cm COMMENTS: Mechanical Engineering Professor: Monroe AMBROSEGUERO NATALY Adhesive Bonding Machine Operator: 3 Dr. Alejandro TAPE# PACS Pericardial Effusion N DATE OF SERVICE: 11/19/2018 Adequate 2D, color flow, spectral Doppler, and M-Mode No LVH. LV internal dimensions are normal. Mild septal hypokinesis secondary to underlying left bundle-branch block. Overall, LV function appears to be mildly reduced at 40% to 45%. Aortic valve sclerosis is without stenosis by Doppler interrogation. Left atrium is normal at 3.1 cm. Mitral valve shows no prolapse. Trace MR. Right-sided chambers are grossly normal. Trace TR. ECHOCARDIOGRAM REPORT [id number] DANII PRESTON TRANSINT:[id number] Voice Confirmation ID: [id number] DOCUMENT ID: [id number] LEANNA VALENZUELA MD at 1451 CC: [id number] DICTATION DATE: 11/19/18 1242 PARCEL POST ORDER CLERK: 11/19/18 1311 ADM IN [facility] [address] [place] [address]
[2018-11-19 15:47] VITALS: BP 142/72
[2018-11-19 19:55] VITALS: BP 119/53
[2018-11-20 00:41] VITALS: BP 125/62
--- NOTE | 2018-11-20 03:42 | NUR ---
I have reviewed this patient and I concur with the Shift Assessment completed by the Licensed Practical Nurse today this shift.
[2018-11-20 05:46] LABS: BASOPHILS 0.2 % (0-2); EOSINOPHILS 0.2 % (0-7); HEMATOCRIT 41.1 % (42.0-54.0); HEMOGLOBIN 14.1 g/dL (13.5-17.5); IMMATURE GRANULOCYTES 0.2 % (0-5); LYMPHOCYTES 18.7 % (15-50); MCH 30.6 pg (26.0-34.0); MCHC 34.3 g/dL (31.0-37.0); MCV 89.2 fL (80.0-100.0); MEAN PLATELET VOLUME 10.5 fL (7.4-10.4); MONOCYTES 1.7 % (2-11); PLATELET COUNT 144 10x3/uL (130-400); RBC 4.61 10x6/uL (4.20-6.10); RDW 13.4 % (11.5-14.5)
[2018-11-20 06:03] LABS: ALBUMIN 2.9 g/dL (3.4-5.0); ALKALINE PHOSPHATASE 55 U/L (46-116); ALT (SGPT) 18 U/L (10-68); BILIRUBIN - TOTAL 0.84 mg/dL (0.2-1.3); CALC OSMOLALITY 285 mosm/kg (275-300); CALCIUM 7.8 mg/dL (8.5-10.1); CARBON DIOXIDE 23.6 mmol/L (21.0-32.0); CHLORIDE - SERUM 109 mmol/L (98-107); CREATININE - SERUM 0.8 mg/dL (0.6-1.3); GLUCOSE 138 mg/dL (74-106); MAGNESIUM - SERUM 2.1 mg/dL (1.8-2.4); PROTEIN - SERUM 6.3 g/dL (6.4-8.2); SODIUM 142 mmol/L (136-145); UREA NITROGEN 15 mg/dL (7-18); eGFR NON AFRICAN AMERICAN > 90 mL/min (90-120)
--- NOTE | 2018-11-20 07:10 | NUR ---
REPORT RECIEVED FROM MUD GRINDER. PATIENT CARE ASSUMED. PATIENT LAYING IN BED ON BACK AWAKE, ALERT AND ORIENTED X 4. PATIENT NPO AWAITING LEFT HEART CATH. VSS AND PATIENT IS STABLE. PATIENT DENIES ANY PAIN OR NEEDS. FAMILY AT BED SIDE. WILL CONTINUE WITH PLAN OF CARE. SR UP X 2 BED IN LOW POSITION AND CALL LIGHT IN REACH.
[2018-11-20 08:36] VITALS: BP 129/68
[2018-11-20 12:07] VITALS: BP 138/74
--- NOTE | 2018-11-20 13:31 | NUR ---
PATIENT SITTING UP IN BED VISITING WITH FAMILY. DENIES ANY PAIN OR NEEDS. VSS. PATIENT NPO AWAITING LEFT HEART CATH. WILL CONTINUE TO MONITOR. SR UP X 2 BED IN LOW POSITION AND CALL LIGHT IN REACH.
--- NOTE | 2018-11-20 14:45 | NUR ---
PHONE CALL FROM RACING MANAGER TEAM TO PRE-MEDICATE PATIENT. PATIENT PRE-MEDICATED PER MAR ORDER. VSS. PATIENT DENIES ANY NEEDS OR PAIN. WILL CONTINUE TO MONIOTR. SR UP X 2 BED IN LOW POSITION AND CALL LIGHT IN REACH.
[2018-11-20 16:40] VITALS: BP 150/76
--- NOTE | 2018-11-20 17:00 | NUR ---
PATIENT RETURNED TO ROOM FROM ROOM COOLER INSTALLER VIA BED AND HOSPITAL PERSONNEL. TR BAND TO RT RADIAL ARTERY. C/D/I. NO BLEEDING, BRUISING OR HEMATOMA. PATIENT IS AWAKE, ALERT AND ORIENTED X 4. VSS. PATIENT DENIES ANY PAIN OR NEEDS. FAMILY AT BEDSIDE. WILL CONTINUE TO MONITOR. SR UP X 2 BED IN LOW POSITION AND CALL LIGHT IN REACH.
--- NOTE | 2018-11-20 17:17 | NUR ---
PATIENT IS STABLE AND VSS. LIGHT INDUSTRIAL TO ROOM. PATIENT TRANSPORTED VIA HOSPITAL BEDE AND LIGHT INDUSTRIAL PERSONNEL.
--- NOTE | 2018-11-20 19:36 | NUR ---
EVENING ROUNDS COMPLETED. REPORT RECEIVED. PT SITTING UP IN BED WITH EYES OPEN, RR EVEN AND UNLABORED. BED IN LOW POSITION. SIDE RAILS UP X2. NO S/S OF DISTRESS. DAUGHTER AT BEDSIDE. INTRODUCED SELF TO PT. PT DENIES FURTHER NEEDS AT THIS TIME. CALL LIGHT IN REACH. WILL CTM.
--- NOTE | 2018-11-20 20:33 | NUR ---
TR BAND REMOVED. NO BLEEDING NOTED.
[2018-11-20 21:18] VITALS: BP 106/56
--- NOTE | 2018-11-21 03:55 | NUR ---
I have reviewed this patient and I concur with the Shift Assessment completed by the Licensed Practical Nurse today this shift.
[2018-11-21 04:00] VITALS: BP 127/59
[2018-11-21 05:47] LABS: BASOPHILS 0 % (0-2); EOSINOPHILS 0 % (0-7); HEMATOCRIT 35.9 % (42.0-54.0); HEMOGLOBIN 12.4 g/dL (13.5-17.5); IMMATURE GRANULOCYTES 0.1 % (0-5); LYMPHOCYTES 12.7 % (15-50); MCH 30.8 pg (26.0-34.0); MCHC 34.5 g/dL (31.0-37.0); MCV 89.3 fL (80.0-100.0); MEAN PLATELET VOLUME 10.3 fL (7.4-10.4); MONOCYTES 5.3 % (2-11); NEUTROPHILS 81.9 % (40-80); PLATELET COUNT 147 10x3/uL (130-400); RBC 4.02 10x6/uL (4.20-6.10); RDW 13.5 % (11.5-14.5)
[2018-11-21 06:01] LABS: ALBUMIN 2.5 g/dL (3.4-5.0); ALKALINE PHOSPHATASE 43 U/L (46-116); ALT (SGPT) 15 U/L (10-68); BILIRUBIN - TOTAL 0.85 mg/dL (0.2-1.3); CALC OSMOLALITY 286 mosm/kg (275-300); CALCIUM 7.5 mg/dL (8.5-10.1); CARBON DIOXIDE 21.5 mmol/L (21.0-32.0); CHLORIDE - SERUM 111 mmol/L (98-107); CREATININE - SERUM 0.8 mg/dL (0.6-1.3); GLUCOSE 139 mg/dL (74-106); POTASSIUM - SERUM 3.9 mmol/L (3.5-5.1); PROTEIN - SERUM 5.3 g/dL (6.4-8.2); SODIUM 142 mmol/L (136-145); UREA NITROGEN 17 mg/dL (7-18); eGFR NON AFRICAN AMERICAN > 90 mL/min (90-120)
--- NOTE | 2018-11-21 07:53 | NUR ---
REPORT RECEIVED. WILL CONTINUE WITH POC. PT CURRENTLY LYING SEMI FOWLERS. CALL LIGHT W/I REACH. FAMILY AT BEDSIDE. PT IS AAO AND UP WITH ASSIST. RR EVEN AND UNLABORED ON RA. L.FOR PIV IS SALINE LOCKED. NO S/S OF DISTRESS NOTED. PT DENIES ANY NEEDS AT THIS TIME. WILL CTM.
[2018-11-21 09:24] VITALS: BP 138/101
[2018-11-21] MEDS ORDERED: LOPRESSOR25 MG PO (11:07)
[2018-11-21 12:32] VITALS: BP 123/59
[2018-11-21] MEDS ORDERED: PLAVIX75 MG PO (13:07)
--- NOTE | 2018-11-21 13:46 | NUR ---
PT DISCHARGED HOME WITH FAMILY VIA WHEELCHAIR. PIV REMOVED WITH CATHETER TIP FULLY INTACT. TELEMETRY REMOVED AND RETURNED. PT DAUGHTER SIGNED PROPER DISCHARGE INSTRUCTION AND REMOVED ALL VALUABLES FROM THE ROOM. SCRIPT GIVEN.
--- NOTE | 2018-11-22 09:58 | OP ---
PATIENT NAME: DANII PRESTON MEDICAL RECORD: [id number] :35 LOCATION:D.M2 D.2129 ADMISSION DATE:11/18/18 SURGEON: LEANNA VALENZUELA MD DATE OF OPERATION: 11/20/2018 PROCEDURE: Left heart catheterization, selective coronary angiography, right radial approach. CATHETERS: A 5-Malaysian Radial sheath, [place] catheter. The procedure was well tolerated. Proceeded immediately to PTCA stenting to the LAD. FINDINGS: Left ventriculography in 30-degree WATTERS view: Normal wall motion and normal systolic function. CORONARY ANATOMY: LEFT MAIN: Left main is free of disease. LAD: Has 2 sequential stenosis of 80%. CIRCUMFLEX: Free of disease. RIGHT CORONARY ARTERY: Dominant artery, gives rise to PDA, free of disease. IMPRESSION AND PLAN: Intervention to the left anterior descending momentarily using indwelling radial sheath. XB LAD guided catheter provided good guide support. Stents deployed were mid lesion at the takeoff just past the first diagonal. A 3-0, 12 mm Roger drug-eluting stent more proximal, 3-0 again 12 mm [place] drug-eluting stent up to 14 atmospheres for 45 seconds. Final angiography shows excellent resolution of 2 sequential stenoses. REGI flow was 3 throughout the procedure. Plavix was loaded in the lab. Sheath closed with TR band. TRANSINT:[id number] Voice Confirmation ID: [id number] DOCUMENT ID: [id number] LEANNA VALENZUELA MD at 0958 CC: [id number] DICTATION DATE: 11/20/18 1644 LOCKSTITCH SHOULDER JOINER: 11/20/18 2301 DIS IN 11/21/18 [place] [id number] [place] [id number]
--- NOTE | 2018-11-24 09:40 | MORECARE ---
CASE MANAGEMENT DISCHARGE SUMMARY PATIENT: DANII PRESTON UNIT: [id number] ADM DATE: 11/18/18 AGE: 83 : 35 SEX: M ROOM/BED: D.8199 AUTHOR: TRUDY GARCIA PHYSICIAN: REFERRING PHYSICIAN: KATE VALENZUELA MD DATE OF SERVICE: 11/24/18 Discharge Plan Patient Name: DANII PRESTON [facility] [facility] 1935 Planned Disposition: Home Anticipated Discharge Date: 11/21/18 Discharge Date: 11/21/2018 Expected LOS: 3 Initial Reviewer: [email or web address] Initial Review Date: 11/24/2018 Generated: 11/24/18 10:40 am Patient Name: DANII PRESTON Page [id number] at 0940 All edits/amendments must be made on the electronic document DICTATION DATE: 11/24/18938 BRUSH SANDER: JENNY 11/24/18938 RPT#: [id number] DC DATE:11/21/18 STATUS: DIS IN [facility] [address] [place] [address] END OF REPORT
== END 2018-11-21 13:47 | disposition home or self-care (01) ==
LOC: D.ER 10:42 → D.EDHOLD 12:27 → OBSVTIME 12:28 → D.M2 13:08
PROVIDERS: Family Medicine; ADMIT Family Medicine; ATTEND Family Medicine
DX: I25.10 Atherosclerotic heart disease of native coronary artery without angina pectoris (principal); R55 Syncope and collapse; I10 Essential (primary) hypertension; I44.7 Left bundle-branch block, unspecified; G40.909 Epilepsy, unspecified, not intractable, without status epilepticus; R61 Generalized hyperhidrosis
CPT/HCPCS: 93458; C9600

== ENCOUNTER → 2019-12-09 11:02 | Outpatient (CLI) | payer MEDICARE, OTHER ==
[2018-11-19 14:29] VITALS: BMI 25.0
[~2019-12-09 11:02] MED LIST changes: +LOPRESSOR25 MG PO; +PLAVIX75 MG PO
== END | disposition home or self-care (01) ==
LOC: D.HCCECHO 11:02
PROVIDERS: ATTEND Internal Medicine Cardiovascular Disease
DX: R06.00 Dyspnea, unspecified (principal)

== ENCOUNTER 2020-11-24 18:09 | Observation (INO) | payer MEDICARE, OTHER ==
[~2020-11-24] VITALS: Ht 167.6 cm; Wt 70.3 kg
--- NOTE | ~2020-11-24 | HEMODYNAMI ---
PATIENT:DANII PRESTON MEDICAL RECORD: [id number] : 35 LOCATION:[facility] D.2129 ADMISSION DATE: 11/24/20 Generatedon:114:20 Patient name: DANII PRESTON Patient #: [id number] SSN: [id number] : 1935 Date of study: 11/25/2020 Page: Of Hemodynamic Procedure Report Patient Data Patient Demographics Procedure consent was obtained First Name: DANII Gender: Male Last Name: KARY : 1935 Middle Initial: BAKARI Age: 85 year(s) Patient #: [id number] Race: SSN: [id number] Additional ID: [id number] Contact details Address: [facility] [address] State: [place] City: [place] Zip code: [address] Past Medical History Allergies Allergen Reaction Date Comments Reported Other allergy 11/20/2018 IODINATED CONTRAST- ORAL AND IV DYE, ASA Admission Admission Data Admission Date: 11/24/2020 Admission Time: 21:29 Arrival Date: 11/24/2020 Arrival Time: 0:00 Admit Source: Emergency Insurance Payor: Medicare department [facility] #: [id number] Room #: [facility]9 Height (in.): 65.75 BSA: 1.79 (m2) Height (cm.): 167 BMI: 25.1 (kg/m2) Weight (lbs.): 154.32 Weight (kg.): 70 Lab Results Lab Result Date: 11/25/2020 Lab Result Time: 0:00 Biochemistry Name Units Result Min Max BUN mg/dl 13 --(--*-)-- 7 18 Creatinine mg/dl 0.8 --(-*--)-- 0.6 1.3 eGFR ml/min 90 --(*---)-- 90 120 NONAFRICAN CBC Name Units Result Min Max Hemoglobin g/dl 14.3 --(*---)-- 13.5 17.5 Procedure Procedure Types Cath Procedure Diagnostic Procedure [facility] w/Coronaries Sedation Charges Moderate Sedation 10-24 minutes Procedure Description Procedure Date Procedure Date: 11/25/2020 Procedure Start Time: 14:03 Procedure End Time: 14:16 Procedure Staff Name Function Serge Martini MD Performing Physician Minerva Cruz RT Monitor Sobia Paul RT Scrub Dawson Sburamanian RN Nurse Procedure Data Cath Procedure Fluoroscopy Diagnostic fluoroscopy Total fluoroscopy Time: 4.7 time: 4.7 min min Diagnostic fluoroscopy Total fluoroscopy dose: 478 dose: 478 mGy mGy Contrast Material Contrast Material Type Amount (ml) Isovue 300 81 Entry Location Entry Primary Successful Side Size Upsize Upsize Entry Closure Succes sful Closure Location (Fr) 1 (Fr) 2 (Fr) Remarks Device Remarks Femoral Right 5 Fr Exoseal artery Estimated blood loss: 5 ml Diagnostic catheters Device Type Used For End Catheter Placement MULTIPACK JL 4.0 5Fr Left Coronary catheter Angiography MULTIPACK 3DRC 5Fr Right Coronary catheter Angiography DIAGNOSTIC AR MOD 5Fr Right Coronary Catheter ([id number]) Angiography DIAGNOSTIC AL2 5Fr Right Coronary catheter ([id number]) Angiography MULTIPACK Pigtail 5 Fr LV Angiography catheter Procedure Complications No complications Procedure Medications Medication Administration Route Dosage Oxygen etCO2 Nasal cannula 2 l/min Lidocaine 2% added to field 20 Heparin Flush Bag added to field 2 bags (1000units/500ml NS) 0.9% NaCl I.V. 100 ml/hr Versed I.V. 1 mg Fentanyl I.V. 50 mcg Versed I.V. 1 mg Hemodynamics Rest BSA: 1.79 (m2) HGB: 14.3 (g/dl) O2 Consumption: Estimated: 204.86 (ml/min) O2 Co nsumption indexed: Estimated:114.45 (ml/min/m) Heart Rate: 72 (bpm) Pressure Samples Time Site Value (mmHg) Purpose Heart Use Rate(bpm) 14:14 LV 123/6,6 Snapshot 67 14:14 AO 162/78(101) Pullback 70 14:14 LV 131/7,9 Pullback 70 Gradients Valve Time Site 1 Site 2 Mean SEP/DFP Peak To Heart Use (mmHg) (sec/min) Peak Rate (mmHg) (bpm) Aortic 14:14 LV AO 0 14 0 70 131/7,9 162/78(101) Calculations Valve P-P Mean Valve Index Valve Source Name Gradient Area Flow (cm2) Aortic 0 0 0 0 Snapshots Pre Cath Intra NCS Post Cath Vital Signs Time Heart Resp SPO2 etCO2 NIBP (mmHg) Rhythm Pain Sedation Rate (ipm) (%) (mmHg) Status Level (bpm) 13:51:22 70 21 95 0 161/77(126) NSR 0 (11) 10(A) , No pain 13:55:47 63 10 96 11.1 153/67(123) NSR 0 (11) 10(A) , No pain 14:00:07 63 14 97 27.5 146/67(121) NSR 0 (11) 10(A) , No pain 14:04:27 61 14 98 28.2 138/64(106) NSR 0 (11) 10(A) , No pain 14:08:43 67 14 97 29 139/65(113) NSR 0 (11) 9(A) , No pain 14:13:01 65 13 97 27.5 135/62(99) NSR 0 (11) 9(A) , No pain 14:19:42 68 15 97 31.2 138/69(104) NSR 0 (11) 10(A) , No pain Medications Time Medication Route Dose Verified Delivered Reason Notes Eff ectiveness by by 13:54:47 Oxygen etCO2 2 Serge Osman used for Nasal l/min [facility] Ferdinand Subramanian RN procedure cannula 13:54:54 Lidocaine 2% added 20ml Serge Valentine for local to vial [facility] anesthetic field MD SCHMITZ 13:55:00 Heparin Flush added 2 Serge Esrge used for Bag to bags [facility] procedure (1000units/500ml field MD SCHMITZ NS) 13:55:09 0.9% NaCl I.V. 100 Serge Osman Per ml/hr [facility] Ferdinand Subramanian RN physician 13:58:49 Versed I.V. 1 mg Serge [address] for [facility] Ferdinand Subramanian RN sedation 13:58:54 Fentanyl I.V. 50 Serge Kenny[address] for mcg [facility] Ferdinand Subramanian RN sedation 14:08:11 Versed I.V. 1 mg [address] for [facility] Ferdinand Subramanian RN sedation Procedure Log Time Note 13:21:31 Informed consent obtained and on chart 13:23:05 Lab Result : Creatinine 0.8 mg/dl 13:23:05 Lab Result : BUN 13 mg/dl 13:23:05 Lab Result : Hemoglobin 14.3 g/dl 13:23:05 Lab Result : eGFR NONAFRICAN 90 ml/min 13:23:08 Diagnostic Cath Status : Urgent 13:23:59 Arrival Date: 11/24/2020 12:00:00 AM 13:24:17 Admit Source: Emergency department 13:24:22 Patient Height : 65.75 inches 13:24:24 Patient Weight : 154.32 lbs 13:24:49 Procedure Status Urgent Heart Cath (IP). 13:24:52 Sobia Counts RT(R) sent for patient. Start room use. 13:24:53 Time tracking: Regular hours (M-F 7:00 - 5:00) 13:25:27 Plan of Care:Hemodynamics will remain stable., Cardiac rhythm will remain stable., Comfort level will be maintained., Respiratory function will remain adequate., Patient/ family verbilizes understanding of procedure., Procedure tolerated without complication., Recovers from procedure without complications.. 13:50:01 Patient received from PCU to CCL 2 Alert and oriented. Tansferred to table in Supine position. 13:50:03 Warm blankets applied, and ash hugger turned on for patient comfort. 13:50:03 Correct patient and procedure confirmed by team. 13:50:04 ECG and BP/O2 sat monitors applied to patient. 13:50:04 Vital chart was started 13:50:06 Full Disclosure recording started 13:51:08 Baseline sample Acquired. 13:51:11 Rhythm: sinus rhythm 13:51:23 H&P Date Dictated: 11/25/2020 New H&P dictated by physician.. 13:51:29 Pre-procedure instructions explained to patient. 13:51:30 Pre-op teaching completed and patient verbalized understanding. 13:51:32 Family in patients room. 13:51:34 Patient NPO since Midnight. 13:51:36 Is the patient allergic to Iodine/contrast media? Yes. 13:51:37 Was the patient premedicated? Yes 13:51:55 Is patient on blood thinner?No 13:51:58 Patient diabetic? No. 13:52:00 Previous problem with sedation/anesthesia? No ? 13:52:01 Snore? Yes 13:52:02 Sleep apnea? No 13:52:03 Deviated septum? No 13:52:04 Opens mouth fully? Yes 13:52:05 Sticks out tongue? Yes 13:52:06 Airway obstruction? No ? 13:52:09 Dentures? No ? 13:52:12 Pre procedure: right dorsailis pedis pulse 1+ Palpable, but thready & weak; easily obliterated 13:52:14 Pre procedure: left dorsailis pedis pulse 1+ Palpable, but thready & weak; easily obliterated 13:52:16 Patient pain scale 0/10 ?. 13:52:22 IV patent on arrival in right wrist with 0.9% NaCl at KVO. 13:52:24 Lab results completed and on chart. 13:52:29 Stress Test: no; N/A ? 13:52:34 Right groin area was prepped with chlora-prep and draped in sterile fashion 13:52:34 Alarms reviewed by R. N. 13:52:35 Sharps counted by scrub and verified by R.N. 13:52:35 Physician arrived 13:52:36 --------ALL STOP TIME OUT------ 13:52:36 Final Timeout: patient, procedure, and site verified with staff and physician. All members of the team are in agreement. 13:52:39 Right groin site verified by team. 13:52:42 Fire Safety Assessment: A--An alcohol-based skin anteseptic being used preoperatively., C--Open oxygen or nitrous oxide is being used., D--An ESU, laser, or fiber-optic light is being used. 13:52:46 Physical assessment completed. ASA score P 2 - A patient with mild systemic disease as per Serge Martini MD. 13:52:48 1) 90+ Normal kidney functon but urine findings or structural abnormalities or genetic trait point to kidney disease. 13:52:51 Maximum allowable contrast dose (3.7 X eGFR X 0.75)250 ml. 13:52:55 Sedation plan: IV Moderate Sedation Medication:Versed, Fentanyl 13:52:58 Use device set Femoral Dx 13:53:54 ACIST Syringe (23837) opened to sterile field. 13:53:54 Bag Decanter (2002S) opened to sterile field. 13:53:55 Medline Cath Pack ([id number]) opened to sterile field. 13:53:55 ACIST Hand Control (10148) opened to sterile field. 13:53:56 ACIST Manifold (27580) opened to sterile field. 13:53:56 DIAGNOSTIC Multipack 5Fr catheter set ([id number]) opened to sterile field. 13:53:57 Tegaderm 4 x 4 (1626W) opened to sterile field. 13:53:58 SHEATH 5FR [place] (AUP024) opened to sterile field. 13:53:59 EMERALD Guide Wire (742-736) opened to sterile field. 13:54:47 Oxygen 2 l/min etCO2 Nasal cannula was administered by Dawson Subramanian RN; used for procedure; Verbal order read back and verified. 13:54:54 Lidocaine 2% 20ml vial added to field was administered by Serge Martini MD; for local anesthetic; Verbal order read back and verified. 13:55:00 Heparin Flush Bag (1000units/500ml NS) 2 bags added to field was administered by Serge Martini MD; used for procedure; Verbal order read back and verified. 13:55:09 0.9% NaCl 100 ml/hr I.V. was administered by Dawson Subramanian RN; Per physician; Verbal order read back and verified. 13:56:56 Insurance Payor : Medicare 13:58:49 Versed 1 mg I.V. was administered by Dawson Subramanian RN; for sedation; Verbal order read back and verified. 13:58:54 Fentanyl 50 mcg I.V. was administered by Dawson Subramanian RN; for sedation; Verbal order read back and verified. 14:03:32 Zero performed for pressure channel P1 14:03:43 Procedure started. 14:03:46 Local anesthetic to right femoral artery with Lidocaine 2% by Serge Martini MD.INITIAL ACCESS ONLY 14:03:55 A 5 Fr sheath was inserted into the Right Femoral artery 14:05:16 A MULTIPACK JL 4.0 5Fr catheter was advanced over the wire and used for Left Coronary Angiography. 14:06:18 LCA angiography performed. 14:06:21 Injector settings: Ml/sec: 3, Volume: 6, 14:07:22 Catheter removed. 14:07:27 A MULTIPACK 3DRC 5Fr catheter was advanced over the wire and used for Right Coronary Angiography. 14:08:11 Versed 1 mg I.V. was administered by Dawson Subramanian RN; for sedation; Verbal order read back and verified. 14:08: RCA angiography performed. 14:: Injector settings: Ml/sec: 3, Volume: 6, 14:08:30 Catheter removed. 14:09:12 A DIAGNOSTIC AR MOD 5Fr Catheter ([id number]) was advanced over the wire and used for Right Coronary Angiography. 14:11:43 Catheter removed. unable to cannulate vessel. 14:12:15 A DIAGNOSTIC AL2 5Fr catheter ([id number]) was advanced over the wire and used for Right Coronary Angiography. 14:13:31 Catheter removed. unable to cannulate vessel. 14:13:43 A MULTIPACK Pigtail 5 Fr catheter was advanced over the wire and used for LV Angiography. 14:14:26 LV hemodynamics recorded. 14:14:27 LV gram done using WATTERS 14:14:29 Injector settings: Ml/sec: 5, Volume: 15, 14:14:37 EF : 55 % 14:14:38 Catheter removed. 14:14:39 EXOSEAL 5Fr (EX500) opened to sterile field. 14:14:48 Sheath removed intact; hemostasis achieved with Exoseal to the Right Femoral artery. 14:14:55 Procedure ended.(Physican Out) 14:15:03 Fluoroscopy time 04.70 minutes. 14:15:06 Fluoroscopy dose: 478 mGy 14:15:06 Flurop Dose total: 478 14:15:11 Dose Area Product 15109 mGy/cm. 14:15:14 Contrast amount:Isovue 300 81ml. 14:15:20 Maximum allowable dose exceeded? No. 14:15:21 Sharps counted by scrub and verified by R.N. 14:15:22 Insertion/operative site no bleeding no hematoma. 14:15:24 Post-op/insertion site Right Femoral artery dressed using a 4 x 4 and Tegaderm. 14:15:27 Post procedure rhythm: unchanged. 14:15:29 Estimated blood loss: 5 ml 14:15:31 Post procedure instruction explained to patient.Patient verbalizes understanding. 14:15:31 Patient needs reinforcement of post procedure teaching. 14:15:56 Procedure type changed to Cath procedure, Diagnostic procedure, LHC, LHC w/Coronaries, Sedation Charges, Moderate Sedation 10-24 minutes 14:15:57 Procedure and supply charges have been captured, reviewed, submitted and are correct. 14:16:00 Procedure Complication : No complications 14:16:02 Vital chart was stopped 14:16:04 [facility] Findings: mild to moderate CAD (<70%) 14:16:05 Operative report dictated upon procedure completion. 14:16:06 See physician's report for complete and final results. 14:16:55 Report given to [facility]. 14:16:57 Patient transfered to [facility] with Stretcher. 14:16:58 Procedure ended. 14:16:58 Full Disclosure recording stopped 14:17:05 End room use (Document Last) 14:17:33 End room use (Document Last) 14:18:29 End room use (Document Last) Device Usage Item Name Manufacture Quantity Catalog Hospital Part Current Minimal L ot# / Number Charge Number Stock Stock Serial# Code ACIST Acist 1 66092 343961 986057 414155 20 Syringe Medical (01579) Systems Inc Bag Microtek 1 318413 22658 118305 5 Decanter Medical Inc. () Medline Medline 1 [id number] 089745 13118 300533 5 Cath Pack ([id number]) ACIST Hand Acist 1 13429 145937 366487 960347 5 Control Medical (19156) Systems Inc ACIST Acist 1 29404 778724 762993 904843 5 Manifold Medical (08784) Systems Inc DIAGNOSTIC Cardinal 1 RA2809 171062 59071 679219 30 Multipack Health 5Fr catheter set (FD9344) Tegaderm 4 3M 1 1626W 186560 960403 437542 5 x 4 (1626W) SHEATH 5FR Terumo 1 GSS608 665753 371445 521669 5 Gillette (NKY188) EMERALD Cardinal 1 502-455 379476 284688 654317 5 Guide Wire [facility] (502-455) MULTIPACK Cardinal 1 778353 5 JL 4.0 5Fr Health catheter MULTIPACK Cardinal 1 784368 5 3DRC 5Fr Health catheter DIAGNOSTIC Cardinal 1 [id number] 143997 100472 171897 15 AR MOD 5Fr Health Catheter (748068Y) DIAGNOSTIC Cardinal 1 191829Q 932923 223039 976765 15 AL2 5Fr Health catheter (850735N) MULTIPACK Cardinal 1 649875 5 Pigtail 5 Health Fr catheter EXOSEAL 5Fr Cardinal 1 EX500 025612 041236 706924 10 (EX500) Health Signature Audit [place] Stage Time Signature Unsigned Intra-Procedure 11/25/2020 Minerva Cruz 2:17:33 PM RT(R) Intra-Procedure 11/25/2020 Dawson Subramanian RN 2:18:30 PM Intra-Procedure 11/25/2020 Serge Kay 2:20:23 PM Ferdinand SCHMITZ Signatures Performing Physician : Signature : Serge Martini MD Date : Time : Monitor : Minerva Cruz RT Signature : Date : Time : Nurse : Dawson Subramanian RN Signature : Date : Time : [place] [address] [place] [address]
[2020-11-24] MEDS ORDERED: LOPRESSOR25 MG PO (18:23)
[2020-11-24] MEDS ORDERED: NIACIN100 MG (18:23)
[2020-11-24] MEDS ORDERED: BAYER CHEWABLE81 MG PO (18:24)
[2020-11-24 18:52] LABS: BASOPHILS 0.8 % (0-2); EOSINOPHILS 1.6 % (0-7); HEMATOCRIT 42.3 % (42.0-54.0); HEMOGLOBIN 14.3 g/dL (13.5-17.5); LYMPHOCYTE ABS# 1.81 10x3/uL (1.32-3.57); LYMPHOCYTES 28.4 % (15-50); MCH 31.4 pg (26.0-34.0); MCHC 33.8 g/dL (31.0-37.0); MEAN PLATELET VOLUME 10.7 fL (7.4-10.4); MONOCYTES 11.1 % (2-11); NEUTROPHIL ABS# 3.71 10x3/uL (1.78-5.38); NEUTROPHILS 58.1 % (40-80); PLATELET COUNT 167 10x3/uL (130-400); RBC 4.55 10x6/uL (4.20-6.10); RDW 13.5 % (11.5-14.5); WBC 6.4 10x3/uL (4.8-10.8)
[2020-11-24 19:00] LABS: APTT 29.6 SECONDS (22.8-39.4); INR 1.2 (0.85-1.17); PROTIME 14.1 SECONDS (11.6-15.0)
[2020-11-24 19:05] LABS: CALC OSMOLALITY 286 mosm/kg (275-300); CALCIUM 8.2 mg/dL (8.5-10.1); CARBON DIOXIDE 27.9 mmol/L (21.0-32.0); CHLORIDE - SERUM 108 mmol/L (98-107); CREATININE - SERUM 0.8 mg/dL (0.6-1.3); GLUCOSE 133 mg/dL (74-106); POTASSIUM - SERUM 3.5 mmol/L (3.5-5.1); SODIUM 143 mmol/L (136-145); UREA NITROGEN 13 mg/dL (7-18); eGFR NON AFRICAN AMERICAN > 90 mL/min (90-120)
[2020-11-24 19:21] LABS: ALBUMIN 3.4 g/dL (3.4-5.0); ALKALINE PHOSPHATASE 90 U/L (30-120); ALT (SGPT) 28 U/L (10-68); BILIRUBIN - TOTAL 0.72 mg/dL (0.2-1.3); CKMB 1.9 U/L (0.0-3.6); CREATINE KINASE 80 UL (21-232); MAGNESIUM - SERUM 2.2 mg/dL (1.8-2.4); PROTEIN - SERUM 6.7 g/dL (6.4-8.2); THYROID STIMULATING HORMONE 1.14 uIU/mL (0.36-3.74)
[2020-11-24 19:22] LABS: TROPONIN-I < 0.017 ng/mL (0.000-0.060)
[2020-11-24 20:39] LABS: BILIRUBIN NEGATIVE (NEGATIVE); KETONE NEGATIVE (NEGATIVE); NITRITE NEGATIVE (NEGATIVE); UROBILINOGEN NORMAL mg/dL (< 2)
[2020-11-24 21:00] VITALS: BP 157/61
[2020-11-24 23:00] VITALS: BP 147/68
[2020-11-25 00:06] LABS: CKMB 1.4 U/L (0.0-3.6); CREATINE KINASE 61 UL (21-232); PRO BNP 468 pg/mL (0-450)
[2020-11-25 00:10] LABS: TROPONIN-I 0.016 ng/mL (0.000-0.060)
[2020-11-25 03:00] VITALS: BP 138/78
[2020-11-25 03:06] VITALS: BP 162/84
[2020-11-25 07:23] LABS: BASOPHILS 1.1 % (0-2); EOSINOPHILS 2.1 % (0-7); HEMATOCRIT 38.9 % (42.0-54.0); HEMOGLOBIN 12.8 g/dL (13.5-17.5); IMMATURE GRANULOCYTES 0.2 % (0-5); LYMPHOCYTE ABS# 1.53 10x3/uL (1.32-3.57); LYMPHOCYTES 27.3 % (15-50); MCH 30.7 pg (26.0-34.0); MCHC 32.9 g/dL (31.0-37.0); MCV 93.3 fL (80.0-100.0); MEAN PLATELET VOLUME 10.8 fL (7.4-10.4); MONOCYTES 13.2 % (2-11); NEUTROPHIL ABS# 3.14 10x3/uL (1.78-5.38); NEUTROPHILS 56.1 % (40-80); PLATELET COUNT 168 10x3/uL (130-400); RBC 4.17 10x6/uL (4.20-6.10); RDW 13.5 % (11.5-14.5); WBC 5.6 10x3/uL (4.8-10.8)
[2020-11-25 07:33] LABS: APTT 29.4 SECONDS (22.8-39.4); INR 1.27 (0.85-1.17); PROTIME 14.7 SECONDS (11.6-15.0)
[2020-11-25 07:48] LABS: ALBUMIN 2.9 g/dL (3.4-5.0); ALKALINE PHOSPHATASE 75 U/L (30-120); ALT (SGPT) 21 U/L (10-68); BILIRUBIN - TOTAL 0.81 mg/dL (0.2-1.3); CALC OSMOLALITY 284 mosm/kg (275-300); CALCIUM 8.1 mg/dL (8.5-10.1); CARBON DIOXIDE 28.1 mmol/L (21.0-32.0); CHLORIDE - SERUM 110 mmol/L (98-107); CKMB 1.1 U/L (0.0-3.6); CREATINE KINASE 53 UL (21-232); CREATININE - SERUM 0.8 mg/dL (0.6-1.3); GLUCOSE 88 mg/dL (74-106); MAGNESIUM - SERUM 2.1 mg/dL (1.8-2.4); POTASSIUM - SERUM 3.8 mmol/L (3.5-5.1); PROTEIN - SERUM 5.4 g/dL (6.4-8.2); SODIUM 144 mmol/L (136-145); UREA NITROGEN 11 mg/dL (7-18); eGFR NON AFRICAN AMERICAN > 90 mL/min (90-120)
[2020-11-25 07:49] LABS: TROPONIN-I 0.016 ng/mL (0.000-0.060)
[2020-11-25 09:06] VITALS: BP 152/73
[2020-11-25 10:06] VITALS: Ht 167.6 cm; Wt 70.3 kg
[2020-11-25 11:08] LABS: LDL-HDL RATIO 1.7 ratio (1.5-3.5)
[2020-11-25 11:44] LABS: CREATINE KINASE 59 UL (21-232)
[2020-11-25 11:45] LABS: TROPONIN-I < 0.017 ng/mL (0.000-0.060)
--- NOTE | 2020-11-25 12:31 | NUR ---
PATIENT SITTING HIGH FOWLERS AAOX4, RESP EVEN AND NON LABORED, NO S/S OF DISTRESS, MEDICATIONS ADMINISTERED WITH NO COMPLICATIONS, HEART CATH PROCEDURE IS BEING SCHEDULED FOR AN ADD ON CASE TODAY, CONSENTS SIGNED AND IN CHART, NO FURTHER NEEDS AT THIS TIME, KEIRA ANDREWS
[2020-11-25 15:00] VITALS: BP 138/72
--- NOTE | 2020-11-25 17:14 | EC ---
PATIENT:DANII PRESTON DATE OF SERVICE: 11/24/20 SEX: M MEDICAL RECORD: [id number] DATE OF : 35 LOCATION:D.M2 D.212 AGE OF PATIENT: 85 ADMISSION DATE: 11/24/20 REFERRING PHYSICIAN: INTERPRETING PHYSICIAN: LEANNA VALENZUELA MD ECHOCARDIOGRAM REPORT ECHO CHARGES 4 ECHO COMPLETE Date: 11/25/20 CLINICAL DIAGNOSIS: SYNCOPE ECHOCARDIOGRAPHIC MEASUREMENTS (adult normal given) AC root (d.<3.7cm) 3.3 cm LV Septum d (<1.2 cm> 1.0 cm Valve Excursion 1.7 cm LV Septum (systole) 1.4 cm Left Atria (s.<4.0cm> 3.3 cm LVPW d(<1.2cm) 0.8 cm RV (d.<2.3cm) 2.4 cm LVPW (sytole) 0.9 cm LV diastole(<5.6CM) 4.8 cm MV E-F(>70mm/sec) cm LV systole 3.4 cm LVOT Diameter 1.7 cm MV exc.(>10mm) 1.0 cm Est.ejection fraction (50-75%) % DOPPLER: LVIT cm/sec A 114 cm/sec E 82 cm/sec LA cm/sec RVSP 20 mmHg LVOT 75 cm/sec AOP1/2T m/s Asc. Ao 130 cm/sec RVOT 81 cm/sec RA cm/sec PA 122 cm/sec AV Gradient Peak 6.8 mmHg AV Mean 3.1 mmHg AV Area 1.4 cm MV Gradient Peak 5.6 mmHg MV Mean 2.9 mmHg MV Area cm COMMENTS: Global Cmo: [place] INGRAM Injection Machine Operator: 3 Dr. Alejandro TAPE# Pericardial Effusion N DATE OF SERVICE: Adequate 2D, color-flow imaging, spectral Doppler, and M-Mode FINDINGS: No LVH. LV internal dimensions are normal. Wall motion is normal. EF is greater than or equal to 55%. Aortic valve is tricuspid. No evidence of stenosis by Doppler interrogation. Left atrium is normal at 3.3 cm. Mitral valve shows no prolapse. Trace MR. Right side is grossly normal. Trace TR. TRANSINT:[id number] Voice Confirmation ID: [id number] DOCUMENT ID: [id number] ECHOCARDIOGRAM REPORT [id number] DANII PRESTON LEANNA VALENZUELA MD at 1714 CC: [id number] DICTATION DATE: 11/25/20 1229 CHALK EXTRUDING MACHINE OPERATOR: 11/25/20 1339 DIS IN 11/25/20 [place] [id number] [place] [id number]
--- NOTE | 2020-11-27 09:56 | OP ---
PATIENT NAME: DANII PRESTON MEDICAL RECORD: [id number] :35 LOCATION:D.M2 D.2129 ADMISSION DATE:11/24/20 SURGEON: LEANNA VALENZUELA MD DATE OF OPERATION: 11/25/2020 Left heart cath, selective coronary angiography, right femoral artery approach. CATHETERS: A 5-Faroese sheath, 5/4 left and right Cindy, 5/4 pig. The procedure was well tolerated. The patient was returned to recovery room, the sheath removed. ExoSeal device placed. FINDINGS: Left ventriculography in 30-degree WATTERS view: Normal motion. Normal systolic function. CORONARY ANATOMY: Left main: Left main is free of disease. LAD has 2 sequential stenosis that are both widely patient without evidence of restenosis. No progression of disease. Circumflex: The circumflex is free of disease. RIGHT CORONARY ARTERY: Dominant artery, has anterior takeoff, free of disease. IMPRESSION: No evidence of restenosis. No progression of [place] disease. LV function remains normal. TRANSINT:[id number] Voice Confirmation ID: [id number] DOCUMENT ID: [id number] LEANNA VALENZUELA MD at 0956 CC: [id number] DICTATION DATE: 11/25/20 1421 WEIGHT REDUCTION SPECIALIST: 11/25/20 2245 DIS IN 11/25/20 [place] [address] [place] [address]
== END 2020-11-25 16:34 | disposition home or self-care (01) ==
LOC: D.ER 18:09 → D.M2 21:29 → OBSVTIME 21:29 → D.EDHOLD 21:29 → D.M2 11-25 00:30
PROVIDERS: Family Medicine; Internal Medicine Interventional Cardiology; ADMIT Emergency Medicine; ATTEND Emergency Medicine
DX: I25.10 Atherosclerotic heart disease of native coronary artery without angina pectoris (principal); I95.9 Hypotension, unspecified; I49.9 Cardiac arrhythmia, unspecified; K21.9 Gastro-esophageal reflux disease without esophagitis; F41.9 Anxiety disorder, unspecified; R55 Syncope and collapse; I38 Endocarditis, valve unspecified